=== PATIENT | female | born 1950 | race Caucasian/White ===

== ENCOUNTER 2019-01-02 07:06 | Inpatient (IN) ==
--- NOTE | 2018-12-10 08:23 | History & Physical Report ---
Date of Service December 10, 2018 date of surgery: 01-02-19 Assessment & Plan (1) Osteoarthritis of left knee: Risks and benefits of procedure discussed in detail today, patient would like to proceed with a left total knee replacement at [facility] as scheduled. will obtain medical clearance from Dr Crook prior to surgery as well as obtain PATs at [facility]. Will place on ASA 81mg po bid x 1 month post op, f/u 2 weeks post op for routine post-operative care and x-ray, sooner if having any problems. will make arrangements for OPPT at [facility] at the time of discharge. At this point in time, has failed conservative measures and would like to proceed with surgical intervention. History of Present Illness Chief Complaint: left knee pain Primary Care Provider: NO PCP Ms Higginbotham is a 68 year old female who complains of left knee pain, presents for pre-op prior to a left TKA. She states that the symptoms have been chronic non-traumatic and have gradually worsened. Currently the patient states that the symptoms are moderate-severe. The pain is described as aching, sharp and throbbing. The symptoms occur intermittently. The symptoms are aggravated by daily activities, ascending stairs, kneeling, repetitive activities, sleeping on the affected side, squatting and walking. In addition to left knee pain the p atient is also experiencing decreased mobility, difficulty bending, difficulty going to sleep, limping, nighttime awakening, pain, stiffness, tenderness and weakness. Prior NSAIDs include Mobic. she previously had a right TKA in 2012 and has recovered well. she also previously had visco injections. Allergies Allergy/AdvReac Type Severity Reaction Status Date / Time mold Allergy Intermediate ASTHMA Verified 12/06/18 12:11 grass pollen-perennial rye, AdvReac Intermediate ASTHMA Verified 12/06/18 12:11 standar Dust Allergy Intermediate ASTHMA Uncoded 12/06/18 12:11 PERFUMES Allergy Intermediate ASTHMA Uncoded 12/06/18 12:11 environmental Allergy Uncoded 12/06/18 12:11 Home Medications Home Medications Medication Instructions Recorded Confirmed Type acetaminophen [Acetaminophen Extra 1,000 mg PO Q4H PRN 12/06/18 12/06/18 History Strength] albuterol sulfate 1 puff INHALATION BID 12/06/18 12/06/18 History aspirin [Aspirin Low Dose] 81 mg PO QAM 12/06/18 12/06/18 History cholecalciferol (vitamin D3) 5,000 unit PO QAM 12/06/18 12/06/18 History [Vitamin D3] conjugated estrogens [Premarin] 0.9 mg PO WK 12/06/18 12/06/18 History diclofenac sodium 75 mg PO BID 12/06/18 12/06/18 History rmzsrpfy-nphw-hym6-C-jerri-bosw 1 tab PO BID 12/06/18 12/06/18 History [Osteo Bi-Flex Triple Strength] lactobacillus combination no.4 3,000 mmu cells PO QAM 12/06/18 12/06/18 History [Probiotic] lansoprazole [Prevacid] 30 mg PO QAM 12/06/18 12/06/18 History lisinopril-hydrochlorothiazide 1 tab PO QAM 12/06/18 12/06/18 History multivitamin 1 tab PO BID 12/06/18 12/06/18 History potassium chloride [Klor-Con M10] 10 meq PO HS 12/06/18 12/06/18 History potassium chloride [Klor-Con M10] 20 meq PO QAM 12/06/18 12/06/18 History quetiapine [Seroquel] 300 mg PO HS 12/06/18 12/06/18 History sertraline [Zoloft] 200 mg PO HS 12/06/18 12/06/18 History vitamin B complex 1 tab PO DAILY 12/06/18 12/06/18 History vitamins A,C,C-pgaz-ujijct 1 cap PO BID 12/06/18 12/06/18 History [PreserVision AREDS] Past Med/Surg History Medical History Anxiety hx Asthma well controlled Depression GERD (gastroesophageal reflux disease) Hypertension Osteoarthritis Peptic ulcer disease hx Surgical History H/O arthroscopy of left knee H/O repair of right rotator cuff H/O thumb surgery right thumb with tendon repair History of bladder surgery "bladder tack" History of cardiac cath 2007. no stents. no cardiology currently History of carpal tunnel release right History of cholecystectomy History of colonoscopy History of dilatation and curettage History of esophagogastroduodenoscopy (EGD) History of tonsillectomy S/P GERMÁN-BSO S/P bunionectomy left foot S/P excision of neuroma left foot S/P foot surgery, right bone spur removal S/P right knee arthroscopy Status post right knee replacement Family History Mother Family history of diabetes mellitus Grandmother (Paternal) Family history of diabetes mellitus Social History Preferred Language: Kazakh Communication Ability: Effective Director Of Residential Services Required: No Beliefs That Will Affect Care: None Current Living Situation: Alone Other Information That Helps Us Care for You: No Feels Safe at Home: Yes Safety Concerns: Feels Safe At This Time Smoking Status: Never smoker Do You Dip or Chew Tobacco: No ; Second Hand Exposure: No ; Tobacco Cessation Education Requested by Patient: No Hx Alcohol Use: No Hx Substance Use: No Review of Systems Review of Systems: All systems reviewed & are unremarkable except as noted in HPI & below Constitutional: no fever, no chills and no sweats Respiratory: no cough and no dyspnea Cardiovascular: no chest pain, no dyspnea and no orthopnea Gastrointestinal: no abdominal pain, no nausea and no vomiting Musculoskeletal: as per Subjective / HPI Physical Exam Physical Exam: Ht: 5ft 4in Wt: 97.5kg BP: 124/70 Pulse:75 Constitutional: WD/WN, vitals as above no acute distress Respiratory: normal respiratory effort, lungs clear to auscultation no respiratory distress, no labored breathing and does not use accessory muscles Cardiovascular: RRR, no murmur, no edema Gastrointestinal (Abdomen): normal bowel sounds, soft, nontender, no hepatosplenomegaly Musculoskeletal: Knee: + knee abnormal to inspection (left knee), + effusion (+1 effusion), + surgical incision (well healed portals), + limited ROM of knee (ROM 0/3/110), + knee ROM with crepitation, + joint line tenderness (medial joint line) and + Beverly's sign positive; no deformity, no skin erythema, no ecchymosis, no valgus laxity, no varus laxity, anterior drawer test negative, Melinda's sign negative and pivot shift test negative Results & Data Diagnostic Findings Left Knee X-ray from 11-02-18 confirms advanced degenerative changes to the left knee, greatest medial compartments and patellofemoral joint, showing joint space narrowing, osteophyte formation and subchondral sclerosis. no acute bony pathology noted.
--- NOTE | 2018-12-11 09:52 | PAT Medication Instructions ---
Medication Instructions Date of Service December 11, 2018 Home Medications acetaminophen [Acetaminophen Extra Strength] 1,000 mg PO Q4H PRN albuterol sulfate 1 puff INHALATION BID aspirin [Aspirin Low Dose] 81 mg PO QAM cholecalciferol (vitamin D3) [Vitamin D3] 5,000 unit PO QAM conjugated estrogens [Premarin] 0.9 mg PO WK diclofenac sodium 75 mg PO BID dhdwjrrm-mmhg-[id number]-C-jerri-bosw [Osteo Bi-Flex Triple Strength] 1 tab PO BID lactobacillus combination no.4 [Probiotic] 3,000 mmu cells PO QAM lansoprazole [Prevacid] 30 mg PO QAM lisinopril-hydrochlorothiazide 1 tab PO QAM multivitamin 1 tab PO BID potassium chloride [Klor-Con M10] 10 meq PO HS potassium chloride [Klor-Con M10] 20 meq PO QAM quetiapine [Seroquel] 300 mg PO HS sertraline [Zoloft] 200 mg PO HS vitamin B complex 1 tab PO DAILY vitamins A,C,W-upjg-ibcqgi [PreserVision AREDS] 1 cap PO BID ASK your surgeon for instructions diclofenac sodium 75 mg PO BID ASK your prescriber and surgeon conjugated estrogens [Premarin] 0.9 mg PO WK STOP taking 2 weeks before surgery (or as soon as possible if surgery is within 2 weeks) ahxcvrwi-juos-njb9-C-jerri-bosw [Osteo Bi-Flex Triple Strength] 1 tab PO BID vitamins A,C,C-wybu-cylscg [PreserVision AREDS] 1 cap PO BID DO NOT take the morning of surgery cholecalciferol (vitamin D3) [Vitamin D3] 5,000 unit PO QAM lactobacillus combination no.4 [Probiotic] 3,000 mmu cells PO QAM lisinopril-hydrochlorothiazide 1 tab PO QAM multivitamin 1 tab PO BID potassium chloride [Klor-Con M10] 20 meq PO QAM vitamin B complex 1 tab PO DAILY Take morning of surgery With a small sip of water, OTHERWISE NOTHING TO EAT OR DRINK AFTER MIDNIGHT: acetaminophen [Acetaminophen Extra Strength] 1,000 mg PO Q4H PRN (okay to take up to 4 hours prior to surgery if needed) albuterol sulfate 1 puff INHALATION BID (please bring with you to hospital day of surgery if possible) aspirin [Aspirin Low Dose] 81 mg PO QAM lansoprazole [Prevacid] 30 mg PO QAM Take evening before surgery acetaminophen [Acetaminophen Extra Strength] 1,000 mg PO Q4H PRN(if needed) albuterol sulfate 1 puff INHALATION BID multivitamin 1 tab PO BID potassium chloride [Klor-Con M10] 10 meq PO HS quetiapine [Seroquel] 300 mg PO HS sertraline [Zoloft] 200 mg PO HS Other Notes If you have any questions please call us at [phone] or [phone] or [phone] or [phone]
--- NOTE | 2018-12-12 14:07 | Anesthesiology Consultation ---
Date of Service December 12, 2018 Assessment & Plan (1) Encounter for pre-operative examination: PCP: 12/04/18: "cleared for surgery provided preop testing normal." Chart Review Chart Review: Pending: Refer to Additional Notes / Consult section (pending preop testing (labs, EKG, CXR)) and Patient seen in Pre Admission Testing Teaching & Discussion Pre-Anesthesia Teaching/Discussion Notes: Instructed NPO after midnight before surgery,except medications with 15 cc of water. Medication instructions provided according to the PAT guidelines. History Surgery Operation Date: 01/02/19 10:20 Proposed Procedures p Left Total Knee Arthroplasty - Anthony Elliott DO Height/Weight Height: 5 ft 4 in Weight: 98.2 kg Allergies Allergy/AdvReac Type Severity Reaction Status Date / Time mold Allergy Intermediate ASTHMA Verified 12/06/18 12:11 grass pollen-perennial rye, AdvReac Intermediate ASTHMA Verified 12/06/18 12:11 standar Dust Allergy Intermediate ASTHMA Uncoded 12/06/18 12:11 PERFUMES Allergy Intermediate ASTHMA Uncoded 12/06/18 12:11 environmental Allergy Uncoded 12/06/18 12:11 Medications Home Medications Medication Instructions Recorded Confirmed Last Taken acetaminophen [Acetaminophen Extra 1,000 mg PO Q4H PRN 12/06/18 12/06/18 Unknown Strength] albuterol sulfate 1 puff INHALATION BID 12/06/18 12/06/18 Unknown aspirin [Aspirin Low Dose] 81 mg PO QAM 12/06/18 12/06/18 Unknown cholecalciferol (vitamin D3) 5,000 unit PO QAM 12/06/18 12/06/18 Unknown [Vitamin D3] conjugated estrogens [Premarin] 0.9 mg PO WK 12/06/18 12/06/18 Unknown diclofenac sodium 75 mg PO BID 12/06/18 12/06/18 Unknown nzkppdkm-xgnp-gcu8-C-jerri-bosw 1 tab PO BID 12/06/18 12/06/18 Unknown [Osteo Bi-Flex Triple Strength] lactobacillus combination no.4 3,000 mmu cells PO QAM 12/06/18 12/06/18 Unknown [Probiotic] lansoprazole [Prevacid] 30 mg PO QAM 12/06/18 12/06/18 Unknown lisinopril-hydrochlorothiazide 1 tab PO QAM 12/06/18 12/06/18 Unknown multivitamin 1 tab PO BID 12/06/18 12/06/18 Unknown potassium chloride [Klor-Con M10] 10 meq PO HS 12/06/18 12/06/18 Unknown potassium chloride [Klor-Con M10] 20 meq PO QAM 12/06/18 12/06/18 Unknown quetiapine [Seroquel] 300 mg PO HS 12/06/18 12/06/18 Unknown sertraline [Zoloft] 200 mg PO HS 12/06/18 12/06/18 Unknown vitamin B complex 1 tab PO DAILY 12/06/18 12/06/18 Unknown vitamins A,C,N-uxdr-snwkty 1 cap PO BID 12/06/18 12/06/18 Unknown [PreserVision AREDS] Past Medical History Medical History Anxiety hx Asthma well controlled Depression GERD (gastroesophageal reflux disease) controlled Hypertension Osteoarthritis Peptic ulcer disease 20 years ago Exercise / Class Metabolic Activity II 4-5 Yardwork/Stairs/Walk up hill Past Family History Family History Mother Family history of diabetes mellitus Grandmother (Paternal) Family history of diabetes mellitus Past Surgical History Surgical History H/O arthroscopy of left knee H/O repair of right rotator cuff H/O thumb surgery right thumb with tendon repair History of bladder surgery "bladder tack" History of cardiac cath 2007= no stents History of carpal tunnel release right History of cholecystectomy History of colonoscopy History of dilatation and curettage History of esophagogastroduodenoscopy (EGD) History of tonsillectomy S/P GERMÁN-BSO S/P bunionectomy left foot S/P excision of neuroma left foot S/P foot surgery, right bone spur removal S/P right knee arthroscopy Status post right knee replacement Past Anesthesia History No Hx of Anesthesia Complications and No Family Hx of Anesthesia Complications History of PONV No Hx of PONV and No Hx of Motion Sickness Social History Smoking Status: Never smoker Do You Dip or Chew Tobacco: No Hx Alcohol Use: No Hx Substance Use: No substance use type: does not use Review of Systems Reflux controlled. Patient denies chest pain, shortness of breath, dyspnea on exertion, cough, wheezing, palpitations. Physical Exam Vital Signs Last Vital Signs Temp 36.8 C 12/12/18 14:08 Pulse 69 12/12/18 14:08 Resp 18 12/12/18 14:08 BP 142/78 H 12/12/18 14:08 Pulse Ox 97 12/12/18 14:08 PHYSICAL Full neck and c-spine range of motion. Full TMJ range of motion. TMD 3 finger breaths Mallampati Score 3 Dentition: intact, several crowns "all over" and implant lower left side Lungs: clear throughout to auscultation Cardiac: regular rate and rhythm, no murmurs noted Spine: normal Carotid arteries: negative bruit Extremities: no edema
--- NOTE | 2018-12-12 14:46 | XRay Report ---
XR chest Pre-admission PA/Lat CLINICAL HISTORY: Preoperative chest COMPARISON STUDY: 07/20/2012 FINDINGS: The cardiac and mediastinal contours are normal. There is no evidence of focal pulmonary co nsolidation. There is no evidence of failure. No pleural effusions are visualized.[ IMPRESSION: No active disease in the chest. Electronically signed by: Soto Meza M.D. 12/12/2018 2:45 PM
[2018-12-12 15:08] LABS: Basophils # (auto) 0.01 K/uL (0-0.2); Basophils % (auto) 0.1 %; Eosinophils # (auto) 0.18 K/uL (0-0.5); Eosinophils % (auto) 2.4 %; Hematocrit (blood only) 40.4 % (37-47); Hemoglobin 13.4 g/dL (12.0-16.0); Immature Granulocytes # (auto) 0.04 K/uL (0.00-0.02); Immature Granulocytes % (auto) 0.5 %; Lymphocytes # (auto) 2.18 K/uL (1.2-3.4); Lymphocytes % (auto) 28.5 %; Mean Corpuscular Hemoglobin 28.9 pg (25-34); Mean Corpuscular Hgb Conc 33.2 g/dL (32-36); Mean Corpuscular Volume 87.1 fL (80-100); Mean Platelet Volume 9.4 fL (7.4-10.4); Monocytes # (auto) 0.56 K/uL (0.11-0.59); Monocytes % (auto) 7.3 %; Neutrophils # (auto) 4.68 K/uL (1.4-6.5); Neutrophils % (auto) 61.2 %; Platelet Count 244 K/uL (130-400); RDW Coefficient of Variation 14.4 % (11.5-14.5); RDW Standard Deviation 46.3 fL (36.4-46.3); Red Blood Count 4.64 M/uL (4.2-5.4); White Blood Count 7.65 K/uL (4.8-10.8)
[2018-12-12 15:24] LABS: Estimated Average Glucose 123 mg/dl; Hemoglobin A1C 5.9 % (4.5-5.6)
[2018-12-12 15:25] LABS: Appearance Urine Clear (Clear); Bacteria Urine Automated Negative (Negative); Bilirubin Urine Negative (Negative); Blood Urine Negative (Negative); Color Urine Dark Yellow; Epithelial Cell Urine Auto >30 /lpf (0-5); Glucose Urine UA Negative (Negative); Ketones Urine Trace (Negative); Leukocyte Esterase Urine 2+ (Negative); Nitrite Urine Negative (Negative); Protein Urine Negative (Negative); RBC Urine Automated 0-4 /hpf (0-4); Specific Gravity Urine 1.032 (1.000-1.030); Urobilinogen Urine Negative (Negative)
[2018-12-12 15:31] LABS: Partial Thromboplastin Ratio 0.9; Partial Thromboplastin Time 24.5 Seconds (21.0-31.0); Prothrombin Time 10.5 Seconds (9.0-12.0)
[2018-12-12 15:43] LABS: Albumin Level 3.7 gm/dl (3.4-5.0); BUN Creatinine Ratio 28.1 (10-20); Calcium 9.1 mg/dl (8.5-10.1); Creatinine Clr Calc Pharmacy 75.9 ml/min; Est GFR (African American) 85.2; Est GFR (Non-African American) 73.5; Potassium 4.5 mmol/L (3.5-5.1)
[~2019-01-02 07:06] MED LIST: ACETAMINOPHEN 500 MG TAB PO SCH; BUPIVACAINE 0.5 % 5 MG/1 ML PF 10ML VIAL ONE; CEFAZOLIN 2000MG 2,000 MG/15 ML SYR IV SCH; CeleBREX 200 MG CAP PO SCH; FAMOTIDINE 20 MG TAB PO SCH; GABAPENTIN 300 MG CAP PO SCH; LR 500ML BOLUS, THEN 15ML/HR IV SCH; METOCLOPRAMIDE HCL 10 MG TABLET PO SCH; ROPIVACAINE 0.5% 5 MG/ML 30 ML VIAL ONE; ROPIVACAINE 0.5% HCL/PF 150 MG, BUPIVACAINE 0.5% MPF 30 ML, EPINEPHrine 30MG/30ML (OR U... INSTIL SCH; TRANEXAMIC ACID 1,000 MG **IV Intra-op IV SCH; TRANEXAMIC ACID 1,000 MG **IV Pre-op IV SCH; dexAMETHasone 4 MG TAB PO SCH
--- NOTE | 2019-01-02 07:22 | History & Physical Bridge Note ---
Date of Service January 02, 2019 History & Physical Bridge Note I have examined the patient, reviewed the History & Physical and in the interval since the performance of the History & Physical I have noted the following changes of clinical significance: no changes noted
[2019-01-02] MEDS ORDERED: fentaNYL citrate 100 MCG/2 ML VIAL ONE (08:55)
[2019-01-02] MEDS ORDERED: MIDAZOLAM HCL 1 MG/ML 2ML VIAL ONE ×2 (08:55)
[2019-01-02] MEDS ORDERED: ORTHO JOINT ANESTHETIC ONE (09:08)
[2019-01-02] MEDS ORDERED: BACITRACIN INJ 50,000 UNIT VIAL ONE (09:08)
[2019-01-02] MEDS ORDERED: LIDOCAINE HCL 2% 2 ML VIAL/AMP(20MG/ML) INFIL ONE (09:10)
[2019-01-02] MEDS ORDERED: ONDANSETRON INJ 2 MG/ML 2 ML VIAL ONE (09:10)
[2019-01-02] MEDS ORDERED: PROPOFOL IV EMULSION 10 MG/ML 20 ML VIAL IV ONE (09:10)
[2019-01-02] MEDS ORDERED: ATROPINE SULFATE 0.1 MG/ML 10ML SYR IV PRN ×2 (09:28→09:58)
[2019-01-02] MEDS ORDERED: ePHEDrine sulfate 50 MG/ML AMP IV PRN ×2 (09:28→09:58)
--- NOTE | 2019-01-02 11:03 | Operative Report ---
Post Operative Report Pre & Post Diagnosis Operation Date: 01/02/19 09:40 Pre-Op Diagnosis: LEFT KNEE OSTEOARTHRITIS Post-Op Diagnosis: LEFT KNEE OSTEOARTHRITIS I identified the patient and participated in the time-out.: Yes Procedure Operation Date: 01/02/19 09:40 Actual Procedures p Left Total Knee Arthroplasty(Left) Utilizing [employer] journey to patient matched total knee arthroplasty size 4 femur 4 tibia 13 polyethylene 29 oval patella- Anthony Elliott DO Surgeon Anthony Elliott DO Child Care Nurse Aba MAGDALENO Estimated Blood Loss 5 Findings Consistent with Post-Op Diagnosis Patient presents with severe end-stage tricompartmental degenerative joint disease left knee no response to conservative management patient had subchondral sclerosis marginal osteophytes [id number]-[id number]-[id number] changes eburnated bone moderate to large effusion all noted with valgus alignment Specimens Bone cartilage Drains Medium bore Hemovac Complications none Disposition Accompanied Patient To Recovery: No Disposition: Recovery Room Indications Patient presents with severe end-stage DJD valgus alignment left knee with eburnated bone bhnl-rd-llgh changes patient is failed attempts at conservative management and physical therapy anti-inflammatories relative rest activity modification corticosteroid injections Visco supplementation in the above intraoperative findings were noted Description of Procedure After proper prepping and draping of the left lower extremity anterior midline incision was made over the region of the extensor extensor mechanism after meticulous hemostasis was obtained and maintained in subcutaneous tissues a medial parapatellar incision was made The patella was subluxed lateralward the medial lateral gutter were cleaned from any hypertrophic synovitis and scar tissue of the distal femoral block was placed and the distal femoral osteotomy cut was made subsequently the chamfers anterior and posterior osteotomy cuts were made utilizing the 4-in-1 block the tibia was subsequently subluxed anteriorward medial and ateral meniscal remnants were excised in their entirety remnants of the anterior and posterior cruciate ligaments were excised in their entirety excellent exposure of the proximal tibia was obtained the tibial osteotomy guide was placed on the proximal tibial osteotomy cut was made once again the knee was irrigated with copious amounts of sterile saline solution the patella was subsequently everted lateralward thickened scar tissue around the patella was removed the patella was subsequently cut utilizing a freehand technique and was drilled prepared for final preparation and placement of patella socially flexion-extension gaps were checked and the equal and symmetric trials were placed to the appropriate femoral and tibial trials with poly-spacer being placed for equal flexion and extension gaps and full range of motion including extension to 0 and flexion to 140 the trial components after having been taken to recovery range of motion was subsequently removed meticulous hemostasis was obtained and maintained subsequently a knee block injection of joint cocktail including ropivacaine 0.5% 150 mg. Bupivacaine 0.5% epinephrine 1-200,030 mL's toradol 30 mg dexamethasone 4 mg ketamine 10 mg clonidine 100 micrograms normal saline solution 30 mg was infiltrated into the soft tissues of the posterior knee medial lateral gutters and periosteal synovium special attention was paid to protect neurovascular structures at all times subsequently trial components having been removed the knee was irrigated with sterile saline solution. debris was removed the proximal tibia was subsequently prepared and was made ready for the placement of the tibial component tibial component was also cemented and tamped into position the femoral component was subsequently placed and cemented in the position the patellar component was subsequently cemented in position because hemostasis once again obtained and maintained wound having been thoroughly irrigated with debridement and debridement lavage was performed as well as a medial parapatellar incision closed with #1 Vicryl in interrupted fashion subcutaneous was closed with #2 Vicryl skin was closed with skin clips. PA-C was necessary for prepping and drapping as well as wound closure of deep fascia Sub cutaneous tissue and skin and was necessary for the case. A sterile compressive dressing was placed patient was taken to recovery in stable condition of report dictated by Earl I attest to the content of the Intraoperative Record and any orders documented therein. Any exceptions are noted below.Please note the patient was properly identified I attest to the content of the Intraoperative Record and any orders documented therein. Any exceptions are noted below.
--- NOTE | 2019-01-02 12:21 | XRay Report ---
XR knee LT 1 or 2V routine CLINICAL HISTORY: Surgical Post Op COMPARISON: None. DISCUSSION: There are postsurgical changes of a total left knee arthroplasty and patellar resurfacing . The femoral tibial components appear well seated. Overlying surgical drains are evident. There is a ir within the soft tissues consistent with recent surgery IMPRESSION: Postsurgical changes of a total left knee arthroplasty. Electronically signed by: Soto Meza M.D. 01/02/2019 12:20 PM
[2019-01-02] MEDS ORDERED: METOCLOPRAMIDE HCL INJ 5 MG/ML 2 ML VIAL IV PRN (13:15)
[2019-01-02] MEDS ORDERED: ALUMINUM/MAGNESIUM SUSP 30 ML UDC PO PRN (13:15)
[2019-01-02] MEDS ORDERED: NALOXONE HCL 0.4 MG/1 ML VIAL/CARP IV PRN (13:15)
[2019-01-02] MEDS ORDERED: ONDANSETRON INJ 2 MG/ML 2 ML VIAL IV PRN (13:15)
[2019-01-02] MEDS ORDERED: bisacodyL 10 MG SUPP PR PRN (13:15)
[2019-01-02] MEDS ORDERED: MAGNESIUM HYDROXIDE SUSP 30 ML UDC PO PRN (13:15)
[2019-01-02] MEDS: ACETAMINOPHEN 500 MG TAB PO SCH ×2 (15:31→21:42)
[2019-01-02] MEDS: FERROUS GLUCONATE 324 MG TAB PO SCH (17:14)
[2019-01-02] MEDS: KETOROLAC TROMETHAMINE 15 MG/ML VIAL IV SCH (17:14)
[2019-01-02] MEDS: CEFAZOLIN 2000MG 2,000 MG/15 ML SYR IV SCH (18:13)
[2019-01-02] MEDS: SODIUM CHLORIDE 0.9% 1000ML 1,000 ML IV SCH (19:39)
[2019-01-02] MEDS: OXYCODONE HCL IR 5 MG TAB (IMMEDIATE RELEASE) PO PRN (20:10)
[2019-01-02] MEDS: ALBUTEROL HFA 8 GM INHALER INH SCH (20:43)
[2019-01-02] MEDS: DOCUSATE SODIUM 100 MG CAP PO SCH (20:43)
[2019-01-02] MEDS: ASPIRIN 81 MG ECTAB PO SCH (20:43)
[2019-01-02] MEDS ORDERED: CEROVITE ADV FORMULA TAB PO SCH (21:00)
[2019-01-02] MEDS ORDERED: POTASSIUM CHLORIDE 10 MEQ TABCR PO SCH (21:00)
[2019-01-02] MEDS ORDERED: SENNA 8.6 MG TAB PO SCH (21:00)
[2019-01-02] MEDS ORDERED: CeleBREX 200 MG CAP PO SCH (21:00)
[2019-01-02] MEDS ORDERED: QUETIAPINE FUMARATE 300 MG TABLET PO SCH (21:00)
[2019-01-02] MEDS ORDERED: SERTRALINE HCL 100 MG TABLET PO SCH (21:00)
[2019-01-03] MEDS: KETOROLAC TROMETHAMINE 15 MG/ML VIAL IV SCH ×3 (01:26→11:06)
[2019-01-03] MEDS: CEFAZOLIN 2000MG 2,000 MG/15 ML SYR IV SCH (02:04)
[2019-01-03] MEDS: SODIUM CHLORIDE 0.9% 1000ML 1,000 ML IV SCH (05:14)
[2019-01-03] MEDS: ACETAMINOPHEN 500 MG TAB PO SCH ×2 (06:13→13:06)
[2019-01-03 07:05] LABS: Hematocrit (blood only) 34.7 % (37-47); Hemoglobin 11.6 g/dL (12.0-16.0); Mean Corpuscular Hemoglobin 29.4 pg (25-34); Mean Corpuscular Hgb Conc 33.4 g/dL (32-36); Mean Corpuscular Volume 87.8 fL (80-100); Platelet Count 214 K/uL (130-400); RDW Coefficient of Variation 14.2 % (11.5-14.5); RDW Standard Deviation 45.8 fL (36.4-46.3); Red Blood Count 3.95 M/uL (4.2-5.4)
--- NOTE | 2019-01-03 07:31 | Orthopedic Progress Note ---
Date of Service January 03, 2019 Assessment & Plan (1) Status post total left knee replacement: POD #1 s/p Left TKA pt/ot dvt proph with MESERET/SCD/ASA plan for d/c home with HHPT mild foot drop, improving. likely from intra-articular injection will cont to monitor Subjective POD #1 s/p Left TKA Review of Systems Constitutional: no fever, no chills and no sweats Respiratory: no cough and no dyspnea Cardiovascular: no chest pain and no dyspnea Gastrointestinal: no abdominal pain, no nausea and no vomiting Physical Exam Physical Exam: Vital Signs Temp 36.9 C 01/03/19 03:21 Pulse 69 01/03/19 03:21 Resp 19 01/03/19 03:21 BP 128/63 01/03/19 03:21 Pulse Ox 93 01/03/19 03:21 Intake & Output 01/02/19 01/03/19 01/03/19 18:59 06:59 18:59 Intake Total 1620 / 3213.333 1593.333 / 3213.33 3 198.333 / 198.333 Output Total 5 / 1080 1075 / 1080 Balance 1615 / 2133.333 518.333 / 2133.333 198.333 / 198.333 Weight 99.2 kg Intake: IV 1020 / 1978.333 958.333 / 1978.333 198.333 / 198.333 Lr 1,000 ml @ 15 mls/hr IV . 800 / 800 Q24H KIRSTIE Rx#:[id number] Nss 1000ML 1,0 00 ml @ 100 mls/ 958.333 / 958.333 198.333 / 198.333 hr IV .Q10H SC H Rx#:[id number] Cyklokapron 1, 000 mg In Sodium 220 / 220 Chloride 100 m l @ 660 mls/hr IV 0630 KIRSTIE Rx#:[id number] IV Perioperative 600 / 600 Oral 90 / 90 Other 545 / 545 Output: Urine 800 / 800 Estimated Blood Loss 5 / 5 Drain Output 275 / 275 Left Knee Hemo vac 275 / 275 Other: Other Intake Ramona rce post op LR # Unmeasured Voi ds 1 Constitutional: WD/WN, vitals as above no acute distress Musculoskeletal: Left Leg: NVDI, calf SNT, negative cherelle sign. DP palpable, able to wiggle toes/ankle movement without difficulty. dressing clean dry and intact. Results & Data Vital Signs (Past 12 Hours) Vital Signs Temp Pulse Resp BP Pulse Ox 01/03/19 03:21 36.9 C 69 19 128/63 93 01/02/19 23:10 36.7 C 70 20 132/64 92 01/02/19 20:30 36.8 C 74 17 132/64 92 Laboratory Results Laboratory Results WBC 13.30 K/uL (4.8-10.8) H 01/03/19 06:20 RBC 3.95 M/uL (4.2-5.4) L 01/03/19 06:20 Hgb 11.6 g/dL (12.0-16.0) L 01/03/19 06:20 Hct 34.7 % (37-47) L 01/03/19 06:20 MCV 87.8 fL (80-100) 01/03/19 06:20 MCH 29.4 pg (25-34) 01/03/19 06:20 MCHC 33.4 g/dL (32-36) 01/03/19 06:20 RDW Std Deviation 45.8 fL (36.4-46.3) 01/03/19 06:20 RDW Coeff of Marine 14.2 % (11.5-14.5) 01/03/19 06:20 Plt Count 214 K/uL (130-400) 01/03/19 06:20 MPV 9.0 fL (7.4-10.4) 01/03/19 06:20 Immature Gran % (Auto) 0.5 % 12/12/18 14:26 Neut % (Auto) 61.2 % 12/12/18 14:26 Lymph % (Auto) 28.5 % 12/12/18 14:26 [place] % (Auto) 7.3 % 12/12/18 14:26 Eos % (Auto) 2.4 % 12/12/18 14:26 Baso % (Auto) 0.1 % 12/12/18 14:26 Immature Gran # (Auto) 0.04 K/uL (0.00-0.02) H 12/12/18 14:26 Neut # (Auto) 4.68 K/uL (1.4-6.5) 12/12/18 14:26 Lymph # (Auto) 2.18 K/uL (1.2-3.4) 12/12/18 14:26 [place] # (Auto) 0.56 K/uL (0.11-0.59) 12/12/18 14:26 Eos # (Auto) 0.18 K/uL (0-0.5) 12/12/18 14:26 Baso # (Auto) 0.01 K/uL (0-0.2) 12/12/18 14:26 PT 10.5 Seconds (9.0-12.0) 12/12/18 14:26 INR 1.0 (0.9-1.1) 12/12/18 14:26 APTT 24.5 Seconds (21.0-31.0) 12/12/18 14: PTT Ratio 0.9 12/12/18 14:26 Sodium 138 mmol/L (136-145) 12/12/18 14:26 Potassium 4.5 mmol/L (3.5-5.1) 12/12/18 14:26 Chloride 105 mmol/L (98-107) 12/12/18 14:26 Carbon Dioxide 28 mmol/L (21-32) 12/12/18 14:26 Anion Gap 5.0 (3-11) 12/12/18 14:26 BUN 23 mg/dl (7-18) H 12/12/18 14:26 Creatinine 0.83 mg/dl (0.6-1.2) 12/12/18 14:26 Est Cr Clr Drug Dosing 75.9 ml/min 12/12/18 14:26 Est GFR ( Amer) 85.2 12/12/18 14:26 Est GFR (Non-Af Amer) 73.5 12/12/18 14:26 BUN/Creatinine Ratio 28.1 (10-20) H 12/12/18 14:26 Glucose 84 mg/dl (70-99) 12/12/18 14:26 Estimat Average Glucose 123 mg/dl 12/12/18 14:26 Hemoglobin A1c 5.9 % (4.5-5.6) H 12/12/18 14:26 Calcium 9.1 mg/dl (8.5-10.1) 12/12/18 14:26 Albumin 3.7 gm/dl (3.4-5.0) 12/12/18 14:26 Urine Color Dark Yellow 12/12/18 Unknown Urine Appearance Clear (Clear) 12/12/18 Unknown Urine pH 5.0 (4.5-7.5) 12/12/18 Unknown Ur Specific [place] 1.032 (1.000-1.030) H 12/12/18 Unknown Urine Protein Negative (Negative) 12/12/18 Unknown Urine Glucose (UA) Negative (Negative) 12/12/18 Unknown Urine Ketones Trace (Negative) H 12/12/18 Unknown Urine Blood Negative (Negative) 12/12/18 Unknown Urine Nitrite Negative (Negative) 12/12/18 Unknown Urine Bilirubin Negative (Negative) 12/12/18 Unknown Urine Urobilinogen Negative (Negative) 12/12/18 Unknown Ur Leukocyte Esterase 2+ (Negative) H 12/12/18 Unknown Urine WBC (Auto) 10-30 /hpf (0-5) H 12/12/18 Unknown Urine RBC (Auto) 0-4 /hpf (0-4) 12/12/18 Unknown U Hyaline Cast (Auto) 1-5 /lpf (0-5) 12/12/18 Unknown U Epithel Cells (Auto) >30 /lpf (0-5) H 12/12/18 Unknown Urine Bacteria (Auto) Negative (Negative) 12/12/18 Unknown Blood Type O Positive 12/12/18 14:26 Antibody Screen NEGATIVE 12/12/18 14:26 Diagnostic Findings XR knee LT 1 or 2V routine CLINICAL HISTORY: Surgical Post Op COMPARISON: None. DISCUSSION: There are postsurgical changes of a total left knee arthroplasty and patellar resurfacing. The femoral tibial components appear well seated. Overlying surgical drains are evident. There is air within the soft tissues consistent with recent surgery IMPRESSION: Postsurgical changes of a total left knee arthroplasty.
[2019-01-03 07:33] LABS: Calcium 8.6 mg/dl (8.5-10.1); Creatinine Clr Calc Pharmacy 77.2 ml/min; Est GFR (African American) 86.4; Est GFR (Non-African American) 74.6; Potassium 3.9 mmol/L (3.5-5.1)
[2019-01-03] MEDS: ASPIRIN 81 MG ECTAB PO SCH (07:54)
[2019-01-03] MEDS: FERROUS GLUCONATE 324 MG TAB PO SCH (07:55)
[2019-01-03] MEDS: DOCUSATE SODIUM 100 MG CAP PO SCH (07:55)
[2019-01-03] MEDS: ALBUTEROL HFA 8 GM INHALER INH SCH (07:56)
[2019-01-03] MEDS ORDERED: dexAMETHasone 4 MG TAB PO SCH (08:00)
[2019-01-03] MEDS ORDERED: VITAMIN B COMPLEX TAB PO SCH (09:00)
[2019-01-03] MEDS ORDERED: CHOLECALCIFEROL 1,000 UNITS TAB PO SCH (09:00)
[2019-01-03] MEDS ORDERED: MULTIVITAMIN TAB PO SCH (09:00)
[2019-01-03] MEDS ORDERED: LISINOPRIL/HCTZ 10/12.5MG TAB PO SCH (09:00)
[2019-01-03] MEDS ORDERED: POTASSIUM CHLORIDE 20 MEQ TABCR PO SCH (09:00)
[2019-01-03] MEDS: OXYCODONE HCL IR 5 MG TAB (IMMEDIATE RELEASE) PO PRN (13:05)
[2019-01-03] MEDS ORDERED: CeleBREX 200 MG CAP PO SCH (21:00)
--- NOTE | 2019-01-07 16:44 | Discharge Summary ---
CHIEF COMPLAINT: Left knee pain. Please see complete history and physical examination. HOSPITAL COURSE: The patient underwent left total knee arthroplasty without complication. She tolerated the procedure well and was discharged to recovery room in stable condition. Her postoperative course was relatively uneventful. She was started on aspirin for DVT prophylaxis. She also utilized MESERET stockings and SCDs for additional prophylaxis. Her H&H was stable and did not require transfusion. Her pain was reasonably well controlled with a combination of spinal anesthesia, intraoperative joint injection, IV, and oral pain medications. She tolerated postoperative physical therapy reasonably well where she was bending her knee and ambulating appropriately. Her surgical dressing and drain were discontinued on postoperative day 1. She was discharged home on postoperative day 1. She will continue her physical therapy as an outpatient. She will continue her aspirin for DVT prophylaxis and follow up in our office in approximately 10-14 days for initial postop evaluation.
== END 2019-01-03 14:02 | disposition home or self-care (01) | DRG 470 ==
LOC: ASU 07:06 → 3N 11:57